=== PATIENT | male | born 1970 | race African-American/Black ===

== ENCOUNTER 2023-04-23 09:36 | Emergency (ER) | payer MEDICAID ==
[~2023-04-23] VITALS: Ht 185.4 cm; Wt 90.7 kg
[2023-04-23 09:52] VITALS: BP 146/94; PULSE 69; RESP 20; TEMP 97.8; O2SAT 100
[2023-04-23] MEDS ORDERED: IBUP-1842 PO (11:52)
[2023-04-23] MEDS ORDERED: NIRM1TAB9 PO (11:52)
[2023-04-23 12:10] VITALS: BP 146/94; PULSE 69; RESP 20; TEMP 97.8; O2SAT 100
== END 2023-04-23 12:10 | disposition home or self-care (01) ==
LOC: MED 09:36
DX: B34.9 Viral infection, unspecified (principal); Z20.822 Contact with and (suspected) exposure to COVID-19; Z79.899 Other long term (current) drug therapy
CPT/HCPCS: 99283